=== PATIENT | female | born 1990 | race Caucasian/White ===

== ENCOUNTER 2022-04-17 06:00 | Inpatient (IN) | payer OTHER ==
[2022-04-17] MEDS ORDERED: TERBUTALINE 1 MG/ML VIAL SQ PRN (06:46)
[2022-04-17] MEDS ORDERED: OXYTOCIN 10 UNIT/ML 1 ML VIAL IM PRN (06:46)
[2022-04-17] MEDS ORDERED: METHYLERGONOVINE 0.2 MG/ML 1 ML AMP IM PRN (06:46)
[2022-04-17] MEDS ORDERED: CARBOPROST TROMETHAMINE 250 MCG/ML 1 ML AMP IM PRN (06:46)
[2022-04-17] MEDS ORDERED: LIDOCAINE 0.5% (PF) 5 MG/ML (50 ML SDV) SQ PRN (06:46)
[2022-04-17] MEDS ORDERED: OXYTOCIN 30 UNITS/500 ML NS 30 UNIT in SALINE 1 500ML.BAG IV SCH (07:00)
[2022-04-17 07:30] LABS: Basophils % (A) 1 %; Eosinophils # (A) 0.2 k/uL (0-0.7); Eosinophils % (A) 2 %; HCT 35.2 % (34.0-46.0); HGB 11.8 gm/dL (11.4-16.0); Lymphocytes % (A) 24 %; MCH 29.7 pg (25.0-35.0); MCHC 33.6 g/dL (31.0-37.0); MCV 88.4 fL (80.0-100.0); Mean Platelet Volume 7.6; Monocytes # (A) 0.8 k/uL (0-1.0); Monocytes % (A) 10 %; Neutrophils # (A) 5.3 k/uL (1.3-7.7); Neutrophils % (A) 63 %; Platelet Count 282 k/uL (150-450); RBC 3.98 m/uL (3.80-5.40); RDW 13.3 % (11.5-15.5); WBC 8.4 k/uL (3.8-10.6)
[2022-04-17] MEDS: LACTATED RINGERS 1,000 ML IV SCH ×2 (07:37→09:42)
--- NOTE | 2022-04-17 09:12 | P.HPOB ---
History of Present Illness H&P Date: 04/17/22 Chief Complaint: Here for elective induction of labor This is a 32-year-old female 2 para 1001 EDC 04/20/2022 at 39-4/7 weeks' gestation who presents today for induction. Fetus is been active throughout the . She denies vaginal bleeding or fluid leakage. Past medical history significant for ASCUS Pap smear 2010. Past surgical history is negative. Current medications vitamins daily, baby aspirin daily. ALLERGIES none known. Family history significant for ovarian cancer, mental impairment. Reproductive history vaginal delivery 2010, uncomplicated. Social history patient is a previous tobacco smoker, quit with . She is . She works for a local [employer]. She denies alcohol or drug use. history significant for blood type B positive, rubella status immune. Urine culture, hepatitis B surface antigen, HIV testing, group B strep cultures all negative. One-hour Glucola 78. On exam patient is 5 foot 2 inches, 185 pounds, vital signs are stable and she is afebrile. The general physical exam is within normal limits. The cervix is 3 cm dilated, 50-60% effaced, -2 station, vertex presentation. Artificial amn iorrhexis now reveals meconium-stained fluid. heart rate is consistent with reactive NST. Impression: 39-4/7 weeks intrauterine , here for induction of labor. All signs reassuring, meconium-stained fluid noted. Plan: Oxytocin per hospital protocol. Continue close maternal and surveillance. Analgesic options reviewed, patient is at this time requesting epidural. Anticipate normal spontaneous vaginal delivery. Review of Systems Constitutional: Reports as per HPI Past Medical History Past Medical History: No Reported History History of Any Multi-Drug Resistant Organisms: None Reported Past Surgical History: No Surgical Hx Reported Past Anesthesia/Blood Transfusion Reactions: No Reported Reaction Past Psychological History: No Psychological Hx Reported Smoking Status: Never smoker Past Alcohol Use History: None Reported Past Drug Use History: None Reported Medications and Allergies Home Medications Medication Instructions Recorded Confirmed Type Vit No.179/Iron/Folic 1 tab PO DAILY 04/17/22 04/17/22 History [ Tablet] Allergies Allergy/AdvReac Type Severity Reaction Status Date / Time No Known Allergies Allergy Verified 04/17/22 06:45 Exam Vital Signs Temp Pulse Resp BP 04/17/22 06:45 97.7 F 80 18 120/74 Intake and Output 04/16/22 04/17/22 04/17/22 22:59 06:59 14:59 Other: Weight 83.915 kg See dictation under HPI please Results Result Diagrams: 04/17/22 06:38 Assessment and Plan Assessment: 39-4/7 weeks intrauterine , here for induction of labor. Meconium fluid, all signs reassuring. Plan: Oxytocin per hospital protocol. Analgesic options reviewed. Continue close maternal and surveillance. Anticipate normal spontaneous vaginal delivery. Time with Patient: Less than 30
[2022-04-17] MEDS ORDERED: ROPIVACAINE 100 MG, fentaNYL (PF). 200 MCG in SODIUM CHLORIDE 0.9% 76 ML EPIDURAL ONE (10:08)
[2022-04-17] MEDS ORDERED: LANOLIN CREAM 5 GM TUBE TOPICAL PRN (11:53)
[2022-04-17] MEDS ORDERED: ZOLPIDEM 5 MG TAB PO PRN (11:53)
[2022-04-17] MEDS ORDERED: diphenhydrAMINE 50 MG CAP PO PRN (11:53)
[2022-04-17] MEDS ORDERED: ACETAMINOPHEN TAB 325 MG TAB PO PRN (11:53)
[2022-04-17] MEDS ORDERED: HYDROCORTISONE 2.5% RECTAL CREAM 30 GM TUBE RECTAL PRN (11:53)
[2022-04-17] MEDS ORDERED: diphenhydrAMINE 50 MG/ML 1 ML VIAL IVP PRN ×2 (11:53)
[2022-04-17] MEDS ORDERED: diphenhydrAMINE 25 MG CAP PO PRN (11:53)
[2022-04-17] MEDS ORDERED: BENZOCAINE/MENTHOL SPRAY 1 GM/SPRAY AEROSOL TOPICAL PRN (11:53)
[2022-04-17] MEDS ORDERED: SIMETHICONE 80 MG CHEWABLE PO PRN (11:53)
[2022-04-17] MEDS ORDERED: diphenhydrAMINE ELIXIR 25 MG/10 ML CUP PO PRN (11:53)
--- NOTE | 2022-04-17 11:53 | P.PROBDLV ---
Vaginal Delivery Note - . Vaginal Delivery Note: This is a 32-year-old female 2 para 1001 EDC 04/20/2022 at 39-4/7 weeks' gestation. Patient presented earlier today for induction with reasonably favorable multiparous cervix. Fetus is been active throughout the . Group B strep cultures are negative, blood type is A+, rubella status immune. Please see my dictated history and physical for details. Artificial amniorrhexis revealed meconium-stained fluid. Oxytocin was started and titrated per protocol. Epidural was placed per her request. Patient progressed well through the first stage of labor and was judged to be completely dilated. The perineal body was prepped and draped in usual sterile fashion. Patient began pushing at 1123 hours. With excellent expulsive efforts the 's head delivered occiput anterior and she restituted accordingly. There was a nuchal cord 1 that was reduced. The right or anterior shoulder was gently delivered from underneath the pubic symphysis at which time the oropharynx, nasopharynx, and external nares were thoroughly bulb suctioned. Patient was officially delivered of a liveborn female at 1135 hours. Umbilical cord was doubly clamped and ligated, she was handed to waiting stocking inspector for evaluation where scores of 9 and 9 at one and 5 minutes respectively were given. The placenta delivered spontaneously, it was inspected and noted to be intact with trivascular cord at 1140 hours. Uterus is then massaged. Careful insp ection of the cervix, vagina, perineum, periurethral, and perirectal areas revealed no lacerations and no defects. Total estimated blood loss 200 mL's. All sponge needle and enhancement counts are correct at the end of the procedure. [place] weighs 7 lbs. 4 oz. or 3290 g. Patient and her family are allowed to begin the bonding experience in the LDR.
[2022-04-17] MEDS: IBUPROFEN 600 MG TAB PO SCH ×2 (12:02→18:35)
[2022-04-17] MEDS ORDERED: SENNA LEAF EXTRACT SYRUP 528 MG/15 ML CUP PO SCH (20:00)
[2022-04-17] MEDS: SENNOSIDES-DOCUSATE SODIUM 1 EACH TAB PO SCH (20:09)
[2022-04-18] MEDS: IBUPROFEN 600 MG TAB PO SCH ×3 (00:03→12:34)
--- NOTE | 2022-04-18 07:37 | P.DS ---
Providers Date of admission: 04/17/22 06:13 Expected date of discharge: 04/18/22 Attending physician: Noemi Garcia Primary care physician: Stated None Hospital Course: This is a 32-year-old 2 para 1001 EDC 04/20/2022 at 39-4/7 weeks' gestation who presented for induction of labor with reasonably favorable cervix. Blood type is A+, rubella status immune, group B strep cultures negative. Please see my dictated history and physical for details. Patient progressed well with the aid of an epidural and went on to deliver vaginally a liveborn female with scores of 9 and 9 at one and 5 minutes respectively. There was meconium-stained fluid noted, and a nuchal cord 1. No perineal lacerations were encountered. Estimated blood loss 200 mL's. Infant weighed 3290 g or 7 lbs. 4 oz. Please see my dictated delivery note for details. This morning the patient is doing very well. She is voiding, ambulate in, passing flatus without difficulty. Vital signs are stable and she is afebrile. Fundus is firm and in the midline, symmetric and 18 week size. Extremities are negative for edema. Chest is clear in all shea. [place] infant is doing well. Patient is judged to be in very good condition for discharge home. She will follow-up with me in the office in 6 weeks. We have reviewed contraceptive options and we will discuss this further in the office. She is reminded no intercourse, tampons or douching. She will use [id number] Advil or Aleve, or Motrin as needed for pain. She will call me with any fevers shakes or chills, foul smelling or copious lochia, with the passage of large blood clots, with any pain not alleviated by [id number] products, or indeed with any concerns. Assessment: Doing well first day Patient Condition at Discharge: Good Plan - Discharge Summary New Discharge Prescriptions: No Action Vit No.179/Iron/Folic [ Tablet] 1 tab PO DAILY Discharge Medication List Vit No.179/Iron/Folic [ Tablet] 1 tab PO DAILY 04/17/22 [History] Follow up Appointment(s)/Referral(s): Noemi Garcia MD [STAFF PHYSICIAN] - 1 Week Discharge Disposition: HOME SELF-CARE
[2022-04-18 08:02] VITALS: BP 112/67; PULSE 64; RESP 15; TEMP 97.9
[2022-04-18] MEDS: SENNOSIDES-DOCUSATE SODIUM 1 EACH TAB PO SCH (10:05)
== END 2022-04-18 12:20 | disposition home or self-care (01) | DRG 807 ==
LOC: 4FBP 06:13
PROVIDERS: ADMIT Obstetrics & Gynecology; ATTEND Obstetrics & Gynecology
PROC: 10E0XZZ Delivery of Products of Conception, External Approach (ICD-10-PCS; principal; 2022-04-17)
PROC: 10907ZC Drainage of Amniotic Fluid, Therapeutic from Products of Conception, Via Natural or Artificial Opening (ICD-10-PCS; 2022-04-17)
PROC: 4A0HXCZ Measurement of Products of Conception, Cardiac Rate, External Approach (ICD-10-PCS; 2022-04-17)
PROC: 3E033VJ Introduction of Other Hormone into Peripheral Vein, Percutaneous Approach (ICD-10-PCS; 2022-04-17)
DX: O69.81X0 Labor and delivery complicated by cord around neck, without compression, not applicable or unspecified (principal); Z37.0 Single live birth; O77.0 Labor and delivery complicated by meconium in amniotic fluid; Z3A.39 39 weeks gestation of pregnancy; Z79.82 Long term (current) use of aspirin; Z80.41 Family history of malignant neoplasm of ovary; Z87.891 Personal history of nicotine dependence
CPT/HCPCS: 85025; 86850; 86900; 86901